=== PATIENT | female | born 1945 | race Caucasian/White ===

== ENCOUNTER → 2017-12-11 | Outpatient (CLI) | payer MEDICARE | END | disposition home or self-care (01) | LOC: Rad HDHVI 08:00 | PROVIDERS: ATTEND Internal Medicine Cardiovascular Disease | DX: I08.0 Rheumatic disorders of both mitral and aortic valves (principal) | CPT/HCPCS: 93306 ==

== ENCOUNTER → 2018-10-03 | Outpatient (CLI) | payer MEDICARE ==
[2018-10-03 11:54] LABS: Urine Blood Negative /uL (Negative)
[2018-10-03 11:58] LABS: Albumin 3.6 g/dL (3.4-5.0); Anion Gap 4 (5-15); Blood Urea Nitrogen 16 mg/dL (7-18); Calcium 8.4 mg/dL (8.5-10.1); Carbon Dioxide 27 mmol/L (21-32); Chloride 109 mmol/L (98-107); Glucose 115 mg/dL (74-106); Potassium 3.8 mmol/L (3.5-5.1); Sodium 140 mmol/L (136-145)
[2018-10-03 12:03] LABS: Alanine Aminotransferase 32 U/L (13-56); Alkaline Phosphatase 107 U/L (45-117); Aspartate Aminotransferase 17 U/L (15-37); Bilirubin, Total 0.7 mg/dL (0.2-1.0); Cholesterol 139 mg/dL (< 200); GFR African American > 60 mL/min; GFR Non-African American > 60 mL/min; HDL Cholesterol 52 mg/dL (40-59); LDL Cholesterol 84 mg/dL (< 100); Total Protein 6.8 g/dL (6.4-8.2); Triglycerides 118 mg/dL (< 150)
[2018-10-03 12:04] LABS: Basophils # (auto) 0.1 uL; Eosinophils # (auto) 0.4 uL; Lymphocytes # (auto) 1.4 uL; Monocytes # (auto) 0.6 uL; Neutrophils # (auto) 3.7 uL; Platelet Count (auto) 319 10^3/uL (140-450); White Blood Cell 6.1 10^3/uL (4.4-10.8)
[2018-10-03 12:06] LABS: Basophils % (auto) 1.1 % (0.0-2.0); Eosinophils % (auto) 5.9 % (0.0-7.0); Hematocrit 45.7 % (36.0-46.0); Lymphocytes % (auto) 22.7 % (10.0-50.0); Mean Corpuscular Hgb Conc. 32.7 g/dL (32.0-36.0); Mean Corpuscular Volume 82.3 fL (80.0-100.0); Monocytes % (auto) 9.6 % (0.0-12.0); Neutrophils % (auto) 60.7 % (37.0-80.0); Nucleated Red Blood Cells % 0.8 %; Red Blood Cells 5.56 10^6/uL (4.0-5.20); Red Cell Distribution Width 15.1 % (11.8-14.3)
[2018-10-03 12:27] LABS: Free T4 (Free Thyroxine) 1.17 ng/dL (0.89-1.76)
== END | disposition home or self-care (01) ==
LOC: Rad HDHVI 08:03
PROVIDERS: ATTEND Internal Medicine Cardiovascular Disease
DX: I08.0 Rheumatic disorders of both mitral and aortic valves (principal); E03.9 Hypothyroidism, unspecified; E55.9 Vitamin D deficiency, unspecified; E11.9 Type 2 diabetes mellitus without complications; D51.9 Vitamin B12 deficiency anemia, unspecified; N39.0 Urinary tract infection, site not specified
CPT/HCPCS: 36415; 80053; 80061; 81003; 82306; 82607; 83036; 84439; 84443; 85025; 87086; 93306

== ENCOUNTER → 2019-03-04 | Outpatient (CLI) | payer MEDICARE ==
[~2019-03-04] MED LIST: READI-CAT 2 (BARIUM SULF)(VANILLA SMOOTHIE) 450ML ONE
[2019-03-04 16:18] LABS: Urine Blood Negative /uL (Negative); Urine Specific Gravity 1.023 (1.001-1.035)
== END | disposition home or self-care (01) ==
LOC: Rad HDHVI 15:18
PROVIDERS: ATTEND Internal Medicine Cardiovascular Disease
DX: K57.32 Diverticulitis of large intestine without perforation or abscess without bleeding (principal); N39.0 Urinary tract infection, site not specified
CPT/HCPCS: 74176; 81003

== ENCOUNTER → 2019-07-29 | Outpatient (CLI) | payer MEDICARE | END | disposition home or self-care (01) | LOC: LAB 10:50 | PROVIDERS: ATTEND Internal Medicine Cardiovascular Disease | DX: R94.4 Abnormal results of kidney function studies (principal); Z88.3 Allergy status to other anti-infective agents; Z91.048 Other nonmedicinal substance allergy status | CPT/HCPCS: 36415; 82565 ==

== ENCOUNTER → 2019-07-30 | Outpatient (CLI) | payer MEDICARE ==
[~2019-07-30] MED LIST changes: +IOHEXOL 350 MG/ML 100ML IJ ONE; -READI-CAT 2 (BARIUM SULF)(VANILLA SMOOTHIE) 450ML ONE; +diphenhdrAMINE HCL 50 MG/1 ML VL IV ONE; +diphenhdrAMINE HCL 50 MG/1 ML VL ONE; +methylPREDNISolone SOD SUCC 125 MG/2 ML VL IV ONE; +methylPREDNISolone SOD SUCC 125 MG/2 ML VL ONE
[2019-07-30 09:14] VITALS: BP 154/70
[2019-07-30 10:05] VITALS: BP 151/64
--- NOTE | 2019-07-30 10:05 | NUR ---
Discharge Instructions See e-MAR for any mediations given with this visit. Patient education given on disease process. Patient verbalized understanding. Previous labs reviewed. Patient discharged in stable condition with after care instructions and follow up appointment. MEDICATIONS SOLUMEDROL IVP BENADRYL IVP Addendum: 07/30/19 at 1527 by DEB BOWIE RN [place] PT COMPLETED CT WITH NO COMPLICATIONS
== END | disposition home or self-care (01) ==
LOC: Rad HDHVI 08:56
PROVIDERS: ATTEND Internal Medicine Cardiovascular Disease
DX: R10.9 Unspecified abdominal pain (principal)
CPT/HCPCS: 74178; 96374; 96375; G0463; J1200; J2930; Q9967

== ENCOUNTER → 2019-10-07 | Outpatient (CLI) | payer MEDICARE ==
[~2019-10-07] VITALS: Ht 175.3 cm; Wt 75.7 kg
[~2019-10-07] MED LIST changes: +ADENOSINE 64 MG in GIVE UN-DILUTED 0 ML IV ONE; +ADENOSINE 90 MG/30 ML INJ IV ONE; -IOHEXOL 350 MG/ML 100ML IJ ONE; -diphenhdrAMINE HCL 50 MG/1 ML VL IV ONE; -diphenhdrAMINE HCL 50 MG/1 ML VL ONE; -methylPREDNISolone SOD SUCC 125 MG/2 ML VL IV ONE; -methylPREDNISolone SOD SUCC 125 MG/2 ML VL ONE
== END | disposition home or self-care (01) ==
LOC: Rad HDHVI 09:01
PROVIDERS: ATTEND Internal Medicine Cardiovascular Disease
DX: I34.1 Nonrheumatic mitral (valve) prolapse (principal); R07.89 Other chest pain; R06.02 Shortness of breath; I10 Essential (primary) hypertension; R53.81 Other malaise; R53.83 Other fatigue; E78.00 Pure hypercholesterolemia, unspecified
CPT/HCPCS: 78452; 93005; 96374; 96375; A9500; J0153

== ENCOUNTER → 2019-10-10 | Outpatient (CLI) | payer MEDICARE | END | disposition home or self-care (01) | LOC: Rad HDHVI 08:50 | PROVIDERS: ATTEND Internal Medicine Cardiovascular Disease | DX: I08.0 Rheumatic disorders of both mitral and aortic valves (principal) | CPT/HCPCS: 93306 ==

== ENCOUNTER → 2020-06-04 | Outpatient (CLI) | payer MEDICARE ==
[2020-06-04 12:07] LABS: Basophils # (auto) 0.1 10 ^3/uL (0-0.2); Basophils % (auto) 1.2 % (0.0-2.0); Eosinophils # (auto) 0.4 10 ^3/uL (0-0.8); Eosinophils % (auto) 5.9 % (0.0-7.0); Hematocrit 47.6 % (36.0-46.0); Hemoglobin 15.1 g/dL (12.2-16.2); Lymphocytes # (auto) 1.4 10 ^3/uL (0.4-5.4); Mean Corpuscular Hgb Conc. 31.8 g/dL (32.0-36.0); Monocytes # (auto) 0.6 10 ^3/uL (0-1.3); Monocytes % (auto) 9.9 % (0.0-12.0); Platelet Count (auto) 312 10^3/uL (140-450); Red Cell Distribution Width 15.4 % (11.8-14.3); White Blood Cell 6.5 10^3/uL (4.4-10.8)
[2020-06-04 12:10] LABS: Urine Blood Negative /uL (Negative); Urine Specific Gravity 1.028 (1.001-1.035)
[2020-06-04 13:08] LABS: Free T4 (Free Thyroxine) 1.14 ng/dL (0.89-1.76)
[2020-06-04 18:22] LABS: Albumin 3.6 g/dL (3.4-5.0); BUN/Creatinine Ratio 14.3; Bilirubin, Total 0.7 mg/dL (0.2-1.0); Calcium 8.6 mg/dL (8.5-10.1); Total Protein 6.5 g/dL (6.4-8.2)
== END | disposition home or self-care (01) ==
LOC: LAB 07:54
PROVIDERS: ATTEND Internal Medicine Cardiovascular Disease
DX: E11.9 Type 2 diabetes mellitus without complications (principal); I10 Essential (primary) hypertension; D51.3 Other dietary vitamin B12 deficiency anemia; D64.9 Anemia, unspecified; E55.9 Vitamin D deficiency, unspecified; R00.2 Palpitations; R53.1 Weakness; R30.0 Dysuria
CPT/HCPCS: 36415; 80053; 80061; 81003; 82306; 82607; 83036; 84439; 84443; 85025

== ENCOUNTER → 2020-10-06 | Outpatient (CLI) | payer MEDICARE | END | disposition home or self-care (01) | LOC: Rad HDHVI 08:54 | PROVIDERS: ATTEND Internal Medicine Cardiovascular Disease | DX: I08.0 Rheumatic disorders of both mitral and aortic valves (principal); R00.1 Bradycardia, unspecified; R07.89 Other chest pain | CPT/HCPCS: 93306 ==

== ENCOUNTER → 2020-10-14 | Outpatient (CLI) | payer MEDICARE ==
[~2020-10-14] VITALS: Ht 170.2 cm; Wt 76.2 kg
== END | disposition home or self-care (01) ==
LOC: Rad HDHVI 08:59
PROVIDERS: ATTEND Internal Medicine Cardiovascular Disease
DX: I10 Essential (primary) hypertension (principal); R07.89 Other chest pain; E78.5 Hyperlipidemia, unspecified; R00.2 Palpitations; R06.02 Shortness of breath; Z82.49 Family history of ischemic heart disease and other diseases of the circulatory system
CPT/HCPCS: 78452; 93017; 96374; A9500

== ENCOUNTER → 2020-11-09 | Outpatient (CLI) | payer MEDICARE ==
[~2020-11-09] VITALS: Ht 30.5 cm; Wt 0.5 kg
[~2020-11-09] MED LIST changes: -ADENOSINE 64 MG in GIVE UN-DILUTED 0 ML IV ONE; -ADENOSINE 90 MG/30 ML INJ IV ONE; +IOHEXOL 350 MG/ML 100ML IJ ONE; +diphenhdrAMINE HCL 50 MG/1 ML VL IV ONE; +diphenhdrAMINE HCL 50 MG/1 ML VL ONE; +methylPREDNISolone SOD SUCC 125 MG/2 ML VL IV ONE; +methylPREDNISolone SOD SUCC 125 MG/2 ML VL ONE
[2020-11-09 11:05] VITALS: BP 155/76
[2020-11-09 12:27] VITALS: BP 155/73
== END | disposition home or self-care (01) ==
LOC: Rad HDHVI 10:58
PROVIDERS: ATTEND Internal Medicine Cardiovascular Disease
DX: I65.23 Occlusion and stenosis of bilateral carotid arteries (principal); R94.4 Abnormal results of kidney function studies; E04.2 Nontoxic multinodular goiter; R59.0 Localized enlarged lymph nodes; I10 Essential (primary) hypertension; E78.5 Hyperlipidemia, unspecified
CPT/HCPCS: 36415; 70496; 82565; 96374; 96375; G0463; J1200; J2930; Q9967

== ENCOUNTER → 2021-02-26 | Outpatient (CLI) | payer MEDICARE ==
[2021-02-26 11:24] LABS: Basophils # (auto) 0.1 10 ^3/uL (0-0.2); Basophils % (auto) 1.3 % (0.0-2.0); Eosinophils # (auto) 0.4 10 ^3/uL (0-0.8); Eosinophils % (auto) 5.5 % (0.0-7.0); Hematocrit 46.3 % (36.0-46.0); Hemoglobin 15.6 g/dL (12.2-16.2); Lymphocytes # (auto) 1.4 10 ^3/uL (0.4-5.4); Lymphocytes % (auto) 20.6 % (10.0-50.0); Mean Corpuscular Hemoglobin 28.8 pg (28.0-32.0); Mean Corpuscular Hgb Conc. 33.6 g/dL (32.0-36.0); Mean Corpuscular Volume 85.7 fL (80.0-100.0); Monocytes # (auto) 0.7 10 ^3/uL (0-1.3); Monocytes % (auto) 11.2 % (0.0-12.0); Neutrophils # (auto) 4.1 10 ^3/uL (1.6-8.6); Neutrophils % (auto) 61.4 % (37.0-80.0); Nucleated Red Blood Cells % 0.1 %; Platelet Count (auto) 314 10^3/uL (140-450); Urine Blood Negative /uL (Negative); Urine Specific Gravity 1.031 (1.001-1.035); White Blood Cell 6.7 10^3/uL (4.4-10.8)
[2021-02-26 11:42] LABS: INR 1.01 (0.9-1.15); Partial Thromboplastin Time 28.4 sec (23.0-31.2)
[2021-02-26 11:46] LABS: Potassium 3.7 mmol/L (3.5-5.1)
[2021-02-26 11:52] LABS: BUN/Creatinine Ratio 11.6; Calcium 8.7 mg/dL (8.5-10.1)
== END | disposition home or self-care (01) ==
LOC: LAB 08:21
PROVIDERS: ATTEND Internal Medicine Cardiovascular Disease
DX: D64.9 Anemia, unspecified (principal); R79.1 Abnormal coagulation profile; N39.0 Urinary tract infection, site not specified; I10 Essential (primary) hypertension
CPT/HCPCS: 36415; 80048; 81003; 85025; 85610; 85730

== ENCOUNTER → 2021-03-01 | Outpatient (CLI) | payer MEDICARE | END | disposition home or self-care (01) | LOC: Rad HDHVI 08:53 | PROVIDERS: ATTEND Internal Medicine Cardiovascular Disease | DX: Z01.811 Encounter for preprocedural respiratory examination (principal); E07.9 Disorder of thyroid, unspecified; D55.1 Anemia due to other disorders of glutathione metabolism; R06.02 Shortness of breath | CPT/HCPCS: 71046 ==

== ENCOUNTER → 2021-06-08 | Outpatient (CLI) | payer MEDICARE ==
[2021-06-08 09:15] LABS: Urine Blood Negative /uL (Negative); Urine Specific Gravity 1.026 (1.001-1.035)
[2021-06-08 09:17] LABS: Basophils # (auto) 0.1 10 ^3/uL (0-0.2); Basophils % (auto) 1.1 % (0.0-2.0); Eosinophils # (auto) 0.3 10 ^3/uL (0-0.8); Eosinophils % (auto) 4.1 % (0.0-7.0); Hematocrit 47.4 % (36.0-46.0); Hemoglobin 15.8 g/dL (12.2-16.2); Lymphocytes # (auto) 1.5 10 ^3/uL (0.4-5.4); Lymphocytes % (auto) 22.2 % (10.0-50.0); Mean Corpuscular Hemoglobin 28.5 pg (28.0-32.0); Mean Corpuscular Hgb Conc. 33.3 g/dL (32.0-36.0); Mean Corpuscular Volume 85.7 fL (80.0-100.0); Monocytes # (auto) 0.6 10 ^3/uL (0-1.3); Monocytes % (auto) 9.1 % (0.0-12.0); Neutrophils # (auto) 4.2 10 ^3/uL (1.6-8.6); Neutrophils % (auto) 63.5 % (37.0-80.0); Nucleated Red Blood Cells % 0.1 %; Red Blood Cells 5.53 10^6/uL (4.0-5.20); White Blood Cell 6.7 10^3/uL (4.4-10.8)
[2021-06-08 09:18] LABS: Red Cell Distribution Width 14.8 % (11.8-14.3)
[2021-06-08 09:35] LABS: Albumin 3.3 g/dL (3.4-5.0); Calcium 8.5 mg/dL (8.5-10.1); Potassium 3.9 mmol/L (3.5-5.1)
[2021-06-08 09:41] LABS: BUN/Creatinine Ratio 14.1; Bilirubin, Total 0.9 mg/dL (0.2-1.0); Total Protein 6.5 g/dL (6.4-8.2)
[2021-06-08 09:48] LABS: Free T4 (Free Thyroxine) 1.29 ng/dL (0.89-1.76)
[2021-06-08 09:49] LABS: Free T3 2.85 pg/mL (2.3-4.2)
== END | disposition home or self-care (01) ==
LOC: LAB 08:23
PROVIDERS: ATTEND Internal Medicine Cardiovascular Disease
DX: D51.3 Other dietary vitamin B12 deficiency anemia (principal); I10 Essential (primary) hypertension; E11.9 Type 2 diabetes mellitus without complications; E55.9 Vitamin D deficiency, unspecified; D64.9 Anemia, unspecified; R00.2 Palpitations; R53.1 Weakness; R30.0 Dysuria
CPT/HCPCS: 36415; 80053; 80061; 81003; 82306; 82330; 82607; 83036; 84439; 84443; 84481; 85025; 86800; 87086; 87088

== ENCOUNTER 2021-09-04 10:25 | Inpatient (IN) | payer MEDICARE ==
[~2021-09-04] VITALS: Ht 172.7 cm; Wt 76.2 kg
[2021-09-04] MEDS ORDERED: ASCORBIC ACID 500 MG TAB PO ONE (11:00)
[2021-09-04] MEDS ORDERED: methylPREDNISolone SOD SUCC 125 MG/2 ML VL IV ONE (11:00)
[2021-09-04] MEDS ORDERED: CHOLECALCIFEROL (VITD3) 2,000 UNIT CAP/TAB PO ONE (11:00)
[2021-09-04] MEDS ORDERED: AZITHROMYCIN 500MG/ 250ML 250 ML IV ONE (11:00)
[2021-09-04] MEDS ORDERED: ZINC SULFATE 220mg CAP or TAB PO ONE (11:00)
[2021-09-04 11:54] LABS: Albumin 2.4 g/dL (3.4-5.0); Potassium 3.7 mmol/L (3.5-5.1)
[2021-09-04 12:01] LABS: BUN/Creatinine Ratio 22.5; Basophils # (auto) 0 10 ^3/uL (0-0.2); Basophils % (auto) 0.3 % (0.0-2.0); Eosinophils # (auto) 0 10 ^3/uL (0-0.8); Hematocrit 47.4 % (36.0-46.0); Hemoglobin 15.7 g/dL (12.2-16.2); Lymphocytes # (auto) 0.4 10 ^3/uL (0.4-5.4); Lymphocytes % (auto) 5.7 % (10.0-50.0); Mean Corpuscular Hemoglobin 27.7 pg (28.0-32.0); Mean Corpuscular Hgb Conc. 33.2 g/dL (32.0-36.0); Mean Corpuscular Volume 83.6 fL (80.0-100.0); Monocytes # (auto) 0.6 10 ^3/uL (0-1.3); Monocytes % (auto) 8.5 % (0.0-12.0); Neutrophils # (auto) 6.1 10 ^3/uL (1.6-8.6); Neutrophils % (auto) 85.5 % (37.0-80.0); Red Blood Cells 5.67 10^6/uL (4.0-5.20); Total Protein 6.6 g/dL (6.4-8.2); White Blood Cell 7.1 10^3/uL (4.4-10.8)
[2021-09-04] MEDS ORDERED: MORPHINE SULFATE INJECTION 2 MG/ML SYRG IV PRN (13:30)
[2021-09-04] MEDS ORDERED: DEXTROSE (50%) 50ML SYRG IV PRN (13:30)
[2021-09-04] MEDS ORDERED: NITROGLYCERIN 0.4 MG SL TAB SL PRN (13:30)
[2021-09-04] MEDS: IPRATROPIUM BROM 0.5 MG/2.5ML INH SOL NEB SCH ×2 (17:25→22:00)
[2021-09-04] MEDS: ACCU-CHEK COMFORT CURVE STRIP VI SCH ×2 (17:39→21:09)
[2021-09-04] MEDS: InsuLIN REG 1unit/0.01ml Soln (100units/ml) SC SCH ×2 (17:40→21:09)
[2021-09-04 21:11] LABS: Urine Bacteria FEW /hpf (None Seen); Urine Blood Negative /uL (Negative); Urine Hyaline Cast FEW /lpf (0 - 2); Urine Mucus FEW (None Seen); Urine Specific Gravity 1.025 (1.001-1.035); Urine WBC 5 /hpf (0 - 5)
[2021-09-05 03:00] VITALS: BP 136/68
[2021-09-05 05:44] VITALS: BP 130/69
[2021-09-05] MEDS: IPRATROPIUM BROM 0.5 MG/2.5ML INH SOL NEB SCH ×3 (06:46→22:20)
[2021-09-05] MEDS: InsuLIN REG 1unit/0.01ml Soln (100units/ml) SC SCH ×4 (07:21→22:14)
[2021-09-05] MEDS: ACCU-CHEK COMFORT CURVE STRIP VI SCH ×4 (07:36→22:13)
[2021-09-05 09:00] VITALS: BP 128/69
[2021-09-05] MEDS: DexAMETHasone SOD PHOS 10MG/1ML VIAL INJ IV SCH ×3 (09:17→22:13)
[2021-09-05] MEDS: ZINC SULFATE 220mg CAP or TAB PO SCH (09:18)
[2021-09-05] MEDS: AZITHROMYCIN 500MG/ 250ML 250 ML IV SCH (09:18)
[2021-09-05] MEDS: IVERMECTIN 3 MG TAB PO SCH (09:18)
[2021-09-05] MEDS: ASCORBIC ACID 1,000 MG TAB PO SCH (09:18)
[2021-09-05] MEDS: CHOLECALCIFEROL (VITD3) 2,000 UNIT CAP/TAB PO SCH (09:18)
[2021-09-05 13:00] VITALS: BP 131/75
[2021-09-05] MEDS ORDERED: AMLO-489 PO (16:23)
[2021-09-05] MEDS ORDERED: IRBE75TA10 PO (16:23)
[2021-09-05] MEDS ORDERED: LEVO50TA7 PO (16:23)
[2021-09-05 22:25] VITALS: BP 126/70
[2021-09-06 05:25] VITALS: BP 140/73
[2021-09-06] MEDS: DexAMETHasone SOD PHOS 10MG/1ML VIAL INJ IV SCH ×3 (06:05→21:07)
[2021-09-06] MEDS: ACCU-CHEK COMFORT CURVE STRIP VI SCH ×4 (06:05→21:20)
[2021-09-06] MEDS: InsuLIN REG 1unit/0.01ml Soln (100units/ml) SC SCH ×4 (06:05→21:08)
[2021-09-06] MEDS: LEVOTHYROXINE SODIUM 25 MCG TAB PO SCH (06:06)
[2021-09-06] MEDS: IPRATROPIUM BROM 0.5 MG/2.5ML INH SOL NEB SCH ×3 (07:46→23:17)
[2021-09-06 08:00] VITALS: BP 132/71
[2021-09-06 09:00] VITALS: BP 132/71
[2021-09-06] MEDS: IVERMECTIN 3 MG TAB PO SCH (09:09)
[2021-09-06] MEDS: ZINC SULFATE 220mg CAP or TAB PO SCH (09:11)
[2021-09-06] MEDS: AZITHROMYCIN 500MG/ 250ML 250 ML IV SCH (09:11)
[2021-09-06] MEDS: CHOLECALCIFEROL (VITD3) 2,000 UNIT CAP/TAB PO SCH (09:11)
[2021-09-06] MEDS: ASCORBIC ACID 1,000 MG TAB PO SCH (09:32)
[2021-09-06 12:55] VITALS: BP 114/64
[2021-09-06 17:05] VITALS: BP 133/71
[2021-09-06 22:00] VITALS: BP 146/74
[2021-09-07 05:00] VITALS: BP 135/67
[2021-09-07] MEDS: DexAMETHasone SOD PHOS 10MG/1ML VIAL INJ IV SCH ×3 (06:14→21:49)
[2021-09-07] MEDS: LEVOTHYROXINE SODIUM 25 MCG TAB PO SCH (06:15)
[2021-09-07] MEDS: ACCU-CHEK COMFORT CURVE STRIP VI SCH ×4 (06:16→21:49)
[2021-09-07] MEDS: InsuLIN REG 1unit/0.01ml Soln (100units/ml) SC SCH ×4 (06:32→21:51)
[2021-09-07 09:00] VITALS: BP 133/60
[2021-09-07] MEDS: ZINC SULFATE 220mg CAP or TAB PO SCH (09:11)
[2021-09-07] MEDS: IVERMECTIN 3 MG TAB PO SCH (09:11)
[2021-09-07] MEDS: AZITHROMYCIN 500MG/ 250ML 250 ML IV SCH (09:11)
[2021-09-07] MEDS: CHOLECALCIFEROL (VITD3) 2,000 UNIT CAP/TAB PO SCH (09:12)
[2021-09-07] MEDS: ASCORBIC ACID 1,000 MG TAB PO SCH (09:12)
[2021-09-07] MEDS: IPRATROPIUM BROM 0.5 MG/2.5ML INH SOL NEB SCH ×3 (09:44→22:06)
[2021-09-07 12:56] VITALS: BP 143/75
[2021-09-07 17:15] VITALS: BP 147/67
[2021-09-07 21:00] VITALS: BP 110/57
[2021-09-08] MEDS: DexAMETHasone SOD PHOS 10MG/1ML VIAL INJ IV SCH ×3 (05:28→21:26)
[2021-09-08 05:47] VITALS: BP 134/69
[2021-09-08] MEDS: InsuLIN REG 1unit/0.01ml Soln (100units/ml) SC SCH ×4 (06:10→21:52)
[2021-09-08] MEDS: ACCU-CHEK COMFORT CURVE STRIP VI SCH ×4 (06:10→21:26)
[2021-09-08] MEDS: LEVOTHYROXINE SODIUM 25 MCG TAB PO SCH (06:10)
[2021-09-08] MEDS: IPRATROPIUM BROM 0.5 MG/2.5ML INH SOL NEB SCH ×3 (06:21→22:40)
[2021-09-08 08:00] VITALS: BP 150/75
[2021-09-08] MEDS: ASCORBIC ACID 1,000 MG TAB PO SCH ×2 (10:00→10:09)
[2021-09-08] MEDS: ZINC SULFATE 220mg CAP or TAB PO SCH (10:09)
[2021-09-08] MEDS: IVERMECTIN 3 MG TAB PO SCH (10:09)
[2021-09-08] MEDS: AZITHROMYCIN 500MG/ 250ML 250 ML IV SCH (10:09)
[2021-09-08] MEDS: CHOLECALCIFEROL (VITD3) 2,000 UNIT CAP/TAB PO SCH (10:10)
[2021-09-08 12:00] VITALS: BP 146/74
[2021-09-08 16:00] VITALS: BP 138/74
[2021-09-08 22:00] VITALS: BP 145/76
[2021-09-09 05:00] VITALS: BP 154/68
[2021-09-09] MEDS: DexAMETHasone SOD PHOS 10MG/1ML VIAL INJ IV SCH ×3 (05:41→22:02)
[2021-09-09] MEDS: ACCU-CHEK COMFORT CURVE STRIP VI SCH ×4 (06:07→22:02)
[2021-09-09] MEDS: InsuLIN REG 1unit/0.01ml Soln (100units/ml) SC SCH ×4 (06:21→22:04)
[2021-09-09] MEDS: LEVOTHYROXINE SODIUM 25 MCG TAB PO SCH (06:22)
[2021-09-09] MEDS ORDERED: PANT40TA2 PO (07:07)
[2021-09-09 09:00] VITALS: BP 156/74
[2021-09-09] MEDS: AZITHROMYCIN 500MG/ 250ML 250 ML IV SCH (09:21)
[2021-09-09] MEDS: IVERMECTIN 3 MG TAB PO SCH (09:22)
[2021-09-09] MEDS: ASCORBIC ACID 1,000 MG TAB PO SCH (09:22)
[2021-09-09] MEDS: ZINC SULFATE 220mg CAP or TAB PO SCH (09:22)
[2021-09-09] MEDS: CHOLECALCIFEROL (VITD3) 2,000 UNIT CAP/TAB PO SCH (09:23)
[2021-09-09 13:00] VITALS: BP 131/71
[2021-09-09 17:00] VITALS: BP 148/72
[2021-09-09 22:00] VITALS: BP 142/75
[2021-09-09] MEDS: IPRATROPIUM BROM 0.5 MG/2.5ML INH SOL NEB SCH (22:00)
[2021-09-10 05:00] VITALS: BP 153/79
[2021-09-10] MEDS: IPRATROPIUM BROM 0.5 MG/2.5ML INH SOL NEB SCH ×3 (06:36→22:10)
[2021-09-10] MEDS: DexAMETHasone SOD PHOS 10MG/1ML VIAL INJ IV SCH ×3 (06:37→21:40)
[2021-09-10] MEDS: LEVOTHYROXINE SODIUM 25 MCG TAB PO SCH (06:38)
[2021-09-10] MEDS: ACCU-CHEK COMFORT CURVE STRIP VI SCH ×4 (06:38→21:40)
[2021-09-10] MEDS: InsuLIN REG 1unit/0.01ml Soln (100units/ml) SC SCH ×4 (06:39→21:41)
[2021-09-10 08:20] VITALS: BP 157/77
[2021-09-10 08:57] VITALS: BP 157/77
[2021-09-10] MEDS: ASCORBIC ACID 1,000 MG TAB PO SCH (10:54)
[2021-09-10] MEDS: ZINC SULFATE 220mg CAP or TAB PO SCH (10:54)
[2021-09-10] MEDS: CHOLECALCIFEROL (VITD3) 2,000 UNIT CAP/TAB PO SCH (10:55)
[2021-09-10 13:00] VITALS: BP 152/71
[2021-09-10 17:00] VITALS: BP 151/81
[2021-09-10 22:00] VITALS: BP 160/73
[2021-09-11 05:00] VITALS: BP 136/61
[2021-09-11] MEDS: IPRATROPIUM BROM 0.5 MG/2.5ML INH SOL NEB SCH ×3 (06:03→19:28)
[2021-09-11] MEDS: ACCU-CHEK COMFORT CURVE STRIP VI SCH ×4 (06:50→22:10)
[2021-09-11] MEDS: DexAMETHasone SOD PHOS 10MG/1ML VIAL INJ IV SCH (06:50)
[2021-09-11] MEDS: LEVOTHYROXINE SODIUM 25 MCG TAB PO SCH (06:50)
[2021-09-11] MEDS: InsuLIN REG 1unit/0.01ml Soln (100units/ml) SC SCH ×4 (06:54→22:13)
[2021-09-11 09:00] VITALS: BP 152/80
[2021-09-11] MEDS: ZINC SULFATE 220mg CAP or TAB PO SCH (09:33)
[2021-09-11] MEDS: ASCORBIC ACID 1,000 MG TAB PO SCH (09:34)
[2021-09-11] MEDS: CHOLECALCIFEROL (VITD3) 2,000 UNIT CAP/TAB PO SCH (09:34)
[2021-09-11 13:00] VITALS: BP 153/74
[2021-09-11] MEDS ORDERED: FAMOTIDINE 20 MG TAB PO SCH (15:00)
[2021-09-11 17:00] VITALS: BP 148/79
[2021-09-11 20:00] VITALS: BP 147/74
[2021-09-11 22:00] VITALS: BP 147/74
[2021-09-11] MEDS: FAMOTIDINE 20 MG TAB PO SCH (22:09)
[2021-09-12 05:00] VITALS: BP 137/69
[2021-09-12] MEDS: IPRATROPIUM BROM 0.5 MG/2.5ML INH SOL NEB SCH ×3 (06:12→22:00)
[2021-09-12] MEDS: ACCU-CHEK COMFORT CURVE STRIP VI SCH ×4 (06:37→21:54)
[2021-09-12] MEDS: LEVOTHYROXINE SODIUM 25 MCG TAB PO SCH (06:38)
[2021-09-12] MEDS: InsuLIN REG 1unit/0.01ml Soln (100units/ml) SC SCH ×4 (06:38→21:57)
[2021-09-12] MEDS: CHOLECALCIFEROL (VITD3) 2,000 UNIT CAP/TAB PO SCH (08:31)
[2021-09-12] MEDS: ZINC SULFATE 220mg CAP or TAB PO SCH (08:31)
[2021-09-12] MEDS: predniSONE 20 MG TAB PO SCH (08:31)
[2021-09-12] MEDS: FAMOTIDINE 20 MG TAB PO SCH ×2 (08:31→21:54)
[2021-09-12 09:00] VITALS: BP 146/72
[2021-09-12 13:00] VITALS: BP_SYST 127; BP_SYST 141; BP_DIAS 61; BP_DIAS 67
[2021-09-12 17:00] VITALS: BP 141/67
[2021-09-12 20:00] VITALS: BP 136/69
[2021-09-12 22:00] VITALS: BP 136/69
[2021-09-13 05:00] VITALS: BP 146/70
[2021-09-13] MEDS: IPRATROPIUM BROM 0.5 MG/2.5ML INH SOL NEB SCH ×3 (06:14→19:41)
[2021-09-13] MEDS: InsuLIN REG 1unit/0.01ml Soln (100units/ml) SC SCH ×4 (06:36→22:15)
[2021-09-13] MEDS: LEVOTHYROXINE SODIUM 25 MCG TAB PO SCH (06:36)
[2021-09-13] MEDS: ACCU-CHEK COMFORT CURVE STRIP VI SCH ×4 (06:36→22:13)
[2021-09-13 08:30] VITALS: BP 124/61
[2021-09-13] MEDS: FAMOTIDINE 20 MG TAB PO SCH ×2 (09:04→22:13)
[2021-09-13] MEDS: CHOLECALCIFEROL (VITD3) 2,000 UNIT CAP/TAB PO SCH (09:05)
[2021-09-13] MEDS: predniSONE 20 MG TAB PO SCH (09:05)
[2021-09-13] MEDS: ZINC SULFATE 220mg CAP or TAB PO SCH (09:05)
[2021-09-13 13:00] VITALS: BP 116/65
[2021-09-13 16:50] VITALS: BP 136/74
[2021-09-13 20:15] VITALS: BP 124/6
[2021-09-13 22:00] VITALS: BP 124/63
[2021-09-14] MEDS: LEVOTHYROXINE SODIUM 25 MCG TAB PO SCH (06:30)
[2021-09-14] MEDS: InsuLIN REG 1unit/0.01ml Soln (100units/ml) SC SCH ×4 (06:31→22:00)
[2021-09-14] MEDS: ACCU-CHEK COMFORT CURVE STRIP VI SCH ×4 (06:31→23:05)
[2021-09-14] MEDS: IPRATROPIUM BROM 0.5 MG/2.5ML INH SOL NEB SCH ×3 (06:47→22:25)
[2021-09-14 09:00] VITALS: BP 114/60
[2021-09-14] MEDS: predniSONE 20 MG TAB PO SCH (09:36)
[2021-09-14] MEDS: FAMOTIDINE 20 MG TAB PO SCH ×2 (09:37→23:05)
[2021-09-14] MEDS: ZINC SULFATE 220mg CAP or TAB PO SCH (09:37)
[2021-09-14] MEDS: CHOLECALCIFEROL (VITD3) 2,000 UNIT CAP/TAB PO SCH (09:37)
[2021-09-14 13:00] VITALS: BP 135/65
[2021-09-14 17:00] VITALS: BP 128/72
[2021-09-14 22:00] VITALS: BP 123/72
[2021-09-15 05:00] VITALS: BP 134/75
[2021-09-15] MEDS: IPRATROPIUM BROM 0.5 MG/2.5ML INH SOL NEB SCH ×3 (06:31→22:02)
[2021-09-15] MEDS: LEVOTHYROXINE SODIUM 25 MCG TAB PO SCH (06:47)
[2021-09-15] MEDS: ACCU-CHEK COMFORT CURVE STRIP VI SCH ×4 (06:47→21:36)
[2021-09-15] MEDS: InsuLIN REG 1unit/0.01ml Soln (100units/ml) SC SCH ×4 (06:47→21:40)
[2021-09-15 08:00] VITALS: BP 123/57
[2021-09-15 08:59] VITALS: BP 123/57
[2021-09-15] MEDS: ZINC SULFATE 220mg CAP or TAB PO SCH (09:55)
[2021-09-15] MEDS: predniSONE 20 MG TAB PO SCH (09:55)
[2021-09-15] MEDS: CHOLECALCIFEROL (VITD3) 2,000 UNIT CAP/TAB PO SCH (09:56)
[2021-09-15] MEDS: FAMOTIDINE 20 MG TAB PO SCH ×2 (09:56→21:36)
[2021-09-15 13:00] VITALS: BP 130/79
[2021-09-15 17:00] VITALS: BP 136/79
[2021-09-15 22:00] VITALS: BP 129/67
[2021-09-16 05:23] VITALS: BP 138/70
[2021-09-16] MEDS: LEVOTHYROXINE SODIUM 25 MCG TAB PO SCH (06:31)
[2021-09-16] MEDS: ACCU-CHEK COMFORT CURVE STRIP VI SCH ×3 (06:31→17:00)
[2021-09-16] MEDS: InsuLIN REG 1unit/0.01ml Soln (100units/ml) SC SCH ×3 (06:33→17:00)
[2021-09-16] MEDS: IPRATROPIUM BROM 0.5 MG/2.5ML INH SOL NEB SCH ×2 (07:30→14:00)
[2021-09-16 09:00] VITALS: BP 138/67
[2021-09-16] MEDS: ZINC SULFATE 220mg CAP or TAB PO SCH (09:03)
[2021-09-16] MEDS: FAMOTIDINE 20 MG TAB PO SCH (09:03)
[2021-09-16] MEDS: predniSONE 20 MG TAB PO SCH (09:03)
[2021-09-16] MEDS: CHOLECALCIFEROL (VITD3) 2,000 UNIT CAP/TAB PO SCH (09:04)
[2021-09-16 13:00] VITALS: BP 147/75
== END 2021-09-16 17:00 | disposition home health service (06) | DRG 177 ==
LOC: EDBD 10:25 → EDSEX 10:25 → ER 10:25 → TELE 13:30 → TELE-EAST 23:35
PROVIDERS: ADMIT Internal Medicine Cardiovascular Disease; ATTEND Internal Medicine Cardiovascular Disease
PROC: 5A0935A Assistance with Respiratory Ventilation, Less than 24 Consecutive Hours, High Flow/Velocity Cannula (ICD-10-PCS; principal; 2021-09-04)
DX: U07.1 COVID-19 (principal); J12.82 Pneumonia due to coronavirus disease 2019; J96.01 Acute respiratory failure with hypoxia; K21.9 Gastro-esophageal reflux disease without esophagitis; I10 Essential (primary) hypertension; Z80.9 Family history of malignant neoplasm, unspecified; Z90.710 Acquired absence of both cervix and uterus; Z90.49 Acquired absence of other specified parts of digestive tract
CPT/HCPCS: 36415; 36600; 71045; 80053; 81001; 82728; 82805; 82962; 83605; 83880; 84484; 85025; 85379; 86141; 87040; 87426; 93005; 94640; 96365; 96375; 97110; 97116; 97530; 99291; G0378; J1100; J1815

== ENCOUNTER → 2021-10-22 | Outpatient (CLI) | payer MEDICARE ==
[~2021-10-22] MED LIST changes: +AMLO-489 PO; -IOHEXOL 350 MG/ML 100ML IJ ONE; +IRBE75TA10 PO; +LEVO50TA7 PO; +PANT40TA2 PO; -diphenhdrAMINE HCL 50 MG/1 ML VL IV ONE; -diphenhdrAMINE HCL 50 MG/1 ML VL ONE; -methylPREDNISolone SOD SUCC 125 MG/2 ML VL IV ONE; -methylPREDNISolone SOD SUCC 125 MG/2 ML VL ONE
== END | disposition home or self-care (01) ==
LOC: Rad HDHVI 13:55
PROVIDERS: ATTEND Internal Medicine Cardiovascular Disease
DX: J84.89 Other specified interstitial pulmonary diseases (principal); I70.0 Atherosclerosis of aorta; M47.814 Spondylosis without myelopathy or radiculopathy, thoracic region
CPT/HCPCS: 71046

== ENCOUNTER → 2021-11-04 | Outpatient (CLI) | payer MEDICARE | END | disposition home or self-care (01) | LOC: Rad HDHVI 09:59 | PROVIDERS: ATTEND Internal Medicine Cardiovascular Disease | DX: I08.3 Combined rheumatic disorders of mitral, aortic and tricuspid valves (principal); R42 Dizziness and giddiness; R06.02 Shortness of breath | CPT/HCPCS: 93306 ==

== ENCOUNTER → 2022-02-15 | Outpatient (CLI) | payer MEDICARE | END | disposition home or self-care (01) | LOC: Rad HDHVI 09:48 | PROVIDERS: ATTEND Internal Medicine Cardiovascular Disease | DX: R06.02 Shortness of breath (principal); R00.2 Palpitations | CPT/HCPCS: 71046; 93306 ==

== ENCOUNTER → 2022-02-23 | Outpatient (CLI) | payer MEDICARE | END | disposition home or self-care (01) | LOC: Rad HDHVI 09:35 | PROVIDERS: ATTEND Internal Medicine Cardiovascular Disease | DX: M25.461 Effusion, right knee (principal) | CPT/HCPCS: 73562 ==

== ENCOUNTER → 2022-05-19 | Outpatient (CLI) | payer MEDICARE ==
[2022-05-19 12:02] LABS: Basophils # (auto) 0.1 10 ^3/uL (0-0.2); Basophils % (auto) 1.1 % (0.0-2.0); Eosinophils # (auto) 0.4 10 ^3/uL (0-0.8); Eosinophils % (auto) 5.5 % (0.0-7.0); Hematocrit 48.5 % (36.0-46.0); Hemoglobin 15.5 g/dL (12.2-16.2); Lymphocytes # (auto) 1.6 10 ^3/uL (0.4-5.4); Lymphocytes % (auto) 24.6 % (10.0-50.0); Mean Corpuscular Hemoglobin 27.3 pg (28.0-32.0); Mean Corpuscular Hgb Conc. 31.9 g/dL (32.0-36.0); Mean Corpuscular Volume 85.6 fL (80.0-100.0); Monocytes # (auto) 0.6 10 ^3/uL (0-1.3); Monocytes % (auto) 9.8 % (0.0-12.0); Neutrophils # (auto) 3.9 10 ^3/uL (1.6-8.6); Red Blood Cells 5.67 10^6/uL (4.0-5.20); Red Cell Distribution Width 15.8 % (11.8-14.3); White Blood Cell 6.6 10^3/uL (4.4-10.8)
[2022-05-19 12:16] LABS: Albumin 3.5 g/dL (3.4-5.0); Potassium 4.3 mmol/L (3.5-5.1)
[2022-05-19 12:24] LABS: BUN/Creatinine Ratio 9.5; Bilirubin, Total 0.5 mg/dL (0.2-1.0); Calcium 8.7 mg/dL (8.5-10.1); Total Protein 6.3 g/dL (6.4-8.2)
[2022-05-19 12:29] LABS: Free T4 (Free Thyroxine) 1.45 ng/dL (0.89-1.76)
[2022-05-19 12:30] LABS: Urine Blood Negative /uL (Negative); Urine Specific Gravity 1.023 (1.001-1.035)
== END | disposition home or self-care (01) ==
LOC: LAB 07:58
PROVIDERS: ATTEND Internal Medicine Cardiovascular Disease
DX: I10 Essential (primary) hypertension (principal); E55.9 Vitamin D deficiency, unspecified; D51.3 Other dietary vitamin B12 deficiency anemia; D64.9 Anemia, unspecified; E11.9 Type 2 diabetes mellitus without complications; R00.2 Palpitations; R53.1 Weakness; R30.0 Dysuria
CPT/HCPCS: 36415; 80053; 80061; 81003; 82306; 82607; 83036; 84439; 84443; 85025